=== PATIENT | male | born 1975 | race Caucasian/White ===

== ENCOUNTER 2017-12-08 07:33 | Observation (INO) | payer OTHER ==
[2017-12-08] MEDS ORDERED: ONDANSETRON 4 MG TAB.RAPDIS PO ONE (08:19)
[2017-12-08] MEDS ORDERED: CLINDAMYCIN PHOSPHATE INJ 300 MG/2 ML SDV IV ONE (08:19)
[2017-12-08] MEDS ORDERED: HYDROMORPHONE HCL INJ/PF 2 MG/ML AMPULE IV ONE (08:19)
--- NOTE | 2017-12-08 08:22 | ER Document Report ---
ED Skin Rash/Insect Bite/Abscs - General Chief Complaint: Boil Stated Complaint: POSSIBLE BOIL Time Seen by Provider: 12/08/17 08:11 Mode of Arrival: Ambulatory Information source: Patient Notes: 42-year-old male with a history of MRSA is complaining of a perineal abscess on the left side for several days. It did break open and drained pus last night but it continues to be painful and filled back up with pus. No fever. History of hydrocele so his scrotum is always swollen. No food since last night, water and coffeee at 5 am. TRAVEL OUTSIDE OF THE [place] IN LAST 30 DAYS: No - Related Data Allergies/Adverse Reactions: No Known Allergies Allergy (Unverified 09/12/11 08:46) Past Medical History - General Information source: Patient - Social History Smoking Status: Never Smoker Chew tobacco use (# tins/day): No Frequency of alcohol use: Occasional Drug Abuse: None Lives with: Spouse/Significant other Family History: Reviewed & Not Pertinent Patient has suicidal ideation: No Patient has homicidal ideation: No - Past Medical History Cardiac Medical History: Reports: Hx Hypercholesterolemia Renal/ Medical History: Reports: Hx Kidney Stones. Denies: Hx Peritoneal Dialysis Skin Medical History: Reports Hx MRSA Psychiatric Medical History: Reports: Hx Depression Past Surgical History: Reports: Hx Orthopedic Surgery - r knee, Hx Rectal Surgery - fistual - Immunizations Hx Diphtheria, Pertussis, Tetanus Vaccination: Yes Review of Systems - Review of Systems Constitutional: No symptoms reported EENT: No symptoms reported Cardiovascular: No symptoms reported Respiratory: No symptoms reported Gastrointestinal: No symptoms reported Genitourinary: No symptoms reported Male Genitourinary: No symptoms reported Musculoskeletal: No symptoms reported Skin: See HPI Hematologic/Lymphatic: No symptoms reported Neurological/Psychological: No symptoms reported Physical Exam - Vital signs Vitals: Temp Pulse Resp BP Pulse Ox 98.4 F 86 16 147/79 H 96 12/08/17 07:37 12/08/17 07:37 12/08/17 07:37 12/08/17 07:37 12/08/17 07:37 Interpretation: Normal - General General appearance: Appears well, Alert In distress: None - HEENT Head: Normocephalic, Atraumatic Eyes: Normal Pupils: PERRL Neck: Supple - Respiratory Respiratory status: No respiratory distress Chest status: Nontender Breath sounds: Normal Chest palpation: Normal - Cardiovascular Rhythm: Regular Heart sounds: Normal auscultation Murmur: No - Abdominal Inspection: Normal Distension: No distension Bowel sounds: Normal Tenderness: Nontender Organomegaly: No organomegaly - Rectal Tenderness: Yes Notes: 12 cm red, induration from inferior scrotum to left perineum, draining abscess perineum. - Back Back: Normal, Nontender - Extremities General upper extremity: Normal inspection, Nontender, Normal color, Normal ROM , Normal temperature General lower extremity: Normal inspection, Nontender, Normal color, Normal ROM , Normal temperature, Normal weight bearing. No: Roberto's sign - Neurological Neuro grossly intact: Yes Cognition: Normal Orientation: AAOx4 Angella Coma Scale Eye Opening: Spontaneous Angella Coma Scale Verbal: Oriented Angella Coma Scale Motor: Obeys Commands Angella Coma Scale Total: 15 Speech: Normal Motor strength normal: LUE, RUE, LLE, RLE Sensory: Normal - Psychological Associated symptoms: Normal affect, Normal mood - Skin Skin Temperature: Warm Skin Moisture: Dry Skin Color: Normal Skin irregularity: Abscess - see above Course - Re-evaluation Re-evalutation: 12/08/17 08:[address] lovell to check the abscess out to see if needs surgical intervention , we also have urologist maori liaison adviser dr. Chavez [phone]. 12/08/17 10:[address] lovell about seeing the pt in 32, he had forgotten, is coming to see the pt. 12/08/17 10:27 Dr. Lovell has seen the patient and wants to incise this in the OR and the patient is willing to have this done. - Vital Signs Vital signs: Temp Pulse Resp BP Pulse Ox 98.6 F 63 16 113/56 L 96 12/08/17 18:53 12/08/17 18:53 12/08/17 18:53 12/08/17 18:53 12/08/17 18:53 - Laboratory Result Diagrams: 12/08/17 08:30 12/08/17 08:30 Laboratory results interpreted by me: 12/08/17 08:30 WBC 11.5 H Hgb 13.4 L Seg Neutrophils % 78.3 H Lymphocytes % 10.7 L Absolute Neutrophils 9.0 H Discharge - Discharge Clinical Impression: Perineal abscess Condition: Stable Disposition: ADMITTED OBSERVATION Admitting Provider: Surgicalist Unit Admitted: OR
[2017-12-08 08:39] LABS: ABSOLUTE BASOPHILS # (AUTO) 0.1 10^3/uL (0.0-0.2); ABSOLUTE EOSINOPHILS # (AUTO) 0.3 10^3/uL (0.0-0.6); ABSOLUTE LYMPHOCYTES (AUTO) 1.2 10^3/uL (0.5-4.7); ABSOLUTE MONOCYTES (AUTO) 0.9 10^3/uL (0.1-1.4); EOSINOPHILS % (AUTO) 2.3 % (0-6); HEMOGLOBIN 13.4 g/dL (13.5-17.0); LYMPHOCYTES % (AUTO) 10.7 % (13-45); MEAN CORPUSCULAR HEMOGLOBIN 28.3 pg (27.0-33.4); MEAN CORPUSCULAR HGB CONC 33.6 g/dL (32.0-36.0); MEAN CORPUSCULAR VOLUME 84 fl (80-97); MONOCYTES % (AUTO) 7.7 % (3-13); PLATELET COUNT 277 10^3/uL (150-450); RED BLOOD COUNT 4.74 10^6/uL (4.35-5.55); RED CELL DISTRIBUTION WIDTH 12.5 % (11.5-14.0); SEGMENTED NEUTROPHILS % (AUTO) 78.3 % (42-78); TOTAL CELLS COUNTED % (AUTO) 100 %; WHITE BLOOD COUNT 11.5 10^3/uL (4.0-10.5)
[2017-12-08 08:57] LABS: ALANINE AMINOTRANSFERASE 41 U/L (21-72); ALKALINE PHOSPHATASE 60 U/L (38-126); ANION GAP 9 (5-19); ASPARTATE AMINO TRANSFERASE 25 U/L (17-59); BILIRUBIN,DIRECT 0.4 mg/dL (0.0-0.4); BILIRUBIN,TOTAL 0.6 mg/dL (0.2-1.3); BLOOD UREA NITROGEN 10 mg/dL (7-20); CALCIUM 9.2 mg/dL (8.4-10.2); CARBON DIOXIDE 27 mmol/L (22-30); CHLORIDE 106 mmol/L (98-107); GLUCOSE 94 mg/dL (75-110); POTASSIUM 4.6 mmol/L (3.6-5.0); SODIUM 141.5 mmol/L (137-145); TOTAL PROTEIN 6.8 g/dL (6.3-8.2)
[2017-12-08] MEDS ORDERED: CLINDAMYCIN 600 MG/D5W RTU 600 MG/50 ML RTUPB IV ONE (09:00)
[2017-12-08] MEDS ORDERED: NORMAL SALINE 1000 ML 1,000 ML IV ONE (10:15)
[2017-12-08] MEDS ORDERED: LIDOCAINE 2% INJ-PF (20 MG/ML) 2 ML AMPUL ONE (10:29)
[2017-12-08] MEDS ORDERED: ONDANSETRON HCL INJ/PF 4 MG/2 ML SDV ONE (10:29)
[2017-12-08] MEDS ORDERED: METOCLOPRAMIDE HCL INJ/PF 10 MG/2 ML SDV ONE (10:29)
[2017-12-08] MEDS ORDERED: DEXAMETHASONE SOD PHOSPHATE INJ 4 MG/1 ML VIAL ONE (10:29)
[2017-12-08] MEDS ORDERED: SUCCINYLCHOLINE CHLORIDE INJ 200 MG/10 ML VIAL ONE (10:29)
[2017-12-08] MEDS ORDERED: MIDAZOLAM 2 MG/2 ML INJ ONE (11:42)
[2017-12-08] MEDS ORDERED: FENTANYL CITRATE INJ/PF 100 MCG/2 ML AMPUL ONE ×2 (11:42→12:46)
[2017-12-08] MEDS ORDERED: PROPOFOL INJ 200 MG/20 ML VIAL IV ONE (11:43)
[2017-12-08] MEDS ORDERED: HYDROMORPHONE HCL INJ/PF 2 MG/ML AMPULE ONE (11:44)
[2017-12-08] MEDS ORDERED: DEXMEDETOMIDINE INJ 80 MCG/20 ML VIAL IV ONE (11:44)
[2017-12-08] MEDS ORDERED: FENTANYL CITRATE INJ/PF 100 MCG/2 ML AMPUL IV PRN ×3 (12:05)
[2017-12-08] MEDS ORDERED: DIPHENHYDRAMINE HCL 50 MG/ML VIAL IV PRN (12:05)
[2017-12-08] MEDS ORDERED: MEPERIDINE HCL/PF INJ 25 MG/1 ML DISP.SYRIN IV PRN (12:05)
[2017-12-08] MEDS ORDERED: ONDANSETRON HCL INJ/PF 4 MG/2 ML SDV IV PRN (12:05)
[2017-12-08] MEDS ORDERED: PROMETHAZINE HCL INJ 25 MG/1 ML VIAL IV PRN ×2 (12:05)
--- NOTE | 2017-12-08 12:48 | OPERATIVE REPORT E ---
Operative Report NAME: VIJI HAMILTON : 1975 AGE: 42Y DATE OF SURGERY: 12/08/2017 ROOM: OR PREOPERATIVE DIAGNOSIS: LEFT PERINEAL ABSCESS. POSTOPERATIVE DIAGNOSIS: LEFT PERINEAL ABSCESS. OPERATION: Incision and drainage of left perineal abscess. SURGEON: RUSLAN GAN M.D. ANESTHESIA: General. INDICATION FOR SURGERY: This is a 42-year-old male who had pains in the left groin for the past few days and worse today. He has some reddish discoloration with swelling around the left groin, just below the scrotal area. The scrotum itself appears to be slightly red. He is known to have a right hydrocele. DESCRIPTION OF PROCEDURE: After adequate general anesthesia, the patient was placed in lithotomy position. The perineal prepped and draped in the usual sterile fashion. Appropriate time out was called. Incision and drainage made over the necrotic area, the middle of the abscess site about 1 cm long. This was incised and a lot of purulent material extruded out and cultures were obtained. The pocket was then further extended proximally and distally to a total distance of about 8 cm. All the pus was then evacuated and it was then pulse-lavaged with about 3 L of saline. After lavage, hemostasis was obtained with cautery. The cavity was then packed with Iodoform gauze, a bottle of quarter-inch was used. The cavity site measured about 8 cm x 3 cm wide x 2 cm deep. Sterile dressings using 4x4 and bd pad were placed over the operative sites. Needle, instrument counts were all correct. Estimated blood loss about 20 mL. Patient then brought to the recovery room in satisfactory condition. DICTATING PHYSICIAN: RUSLAN GAN M.D. [id number] PHY#: [id number] ID: [id number] JOB#: [id number] ACCT: [id number] cc:RUSLAN GAN M.D. > MTDD
[2017-12-08] MEDS ORDERED: OXYCODONE-ACETAMINOPHEN 5-325 MG TABLET PO PRN (14:59)
[2017-12-08] MEDS ORDERED: PIPERACILLIN SODIUM/TAZOBACTAM 3.375 GM in NORMAL SALINE 100 ML IV SCH (18:00)
[2017-12-08 18:58] VITALS: BP 113/56
--- NOTE | 2017-12-29 20:09 | HISTORY AND PHYSICAL E ---
History and Physical NAME: VIJI HAMILTON : 1975 AGE: 42Y ADMITTED: 12/08/2017 ROOM: 206 CHIEF COMPLAINT: Left perineal pains. HISTORY OF PRESENT ILLNESS: This is a 42-year-old male complaining of left perineal pains for the past several days. The night prior to being seen in the emergency room the abscess site in the left perineal area drained pus. However, because of the pains and since the abscess cavity appears to be filled up again the patient presented to the emergency room. PAST MEDICAL HISTORY: History of MRSA infection in the past. FAMILY HISTORY: Unremarkable. ALLERGIES: No known. SOCIAL HISTORY: Never smoked. Occasional use of alcohol. Denies alcohol/drug abuse. REVIEW OF SYSTEMS: CONSTITUTIONAL: Denies any fever or chills. ENT: No symptoms reported. CARDIOVASCULAR: No chest pain, chest pressure/tightness, no shortness of breath. GASTROINTESTINAL: No diarrhea or constipation. GENITOURINARY: No dysuria. MUSCULOSKELETAL: No muscle pains. SKIN: Abscess site along the left perineal area. HEMATOLOGIC/LYMPHATIC: No symptoms reported. NEUROLOGICAL/PSYCHOLOGICAL: No symptoms reported. PHYSICAL EXAMINATION: GENERAL APPEARANCE: Well-developed, well-nourished, 42-year-old male alert and oriented. Complaining of left perineal pains. The patient appears to be alert and oriented, in no real acute distress. VITAL SIGNS: Temperature is 98.4, pulse of 86 with respiratory rate of 16 per minute, blood pressure 147/79, pulse ox of 96% on room air. HEENT: Head is normocephalic. Eyes normal. Pupils; PERRL. NECK: Supple. CHEST: Breath sounds normal. HEART: Regular sinus rhythm. ABDOMEN: Soft, nontender. RECTAL: Has tenderness along the left perineal area just below the left scrotum. There is draining some purulent material. The area roughly measured about 12 cm erythematous. EXTREMITIES: No edema. NEUROLOGIC: No gross neuro abnormality. The patient is alert and oriented x4. Normal affect. SKIN: Warm and dry. Abscess noted on the left perineal area. IMPRESSION: Abscess of the left perineal area. PLAN: For incision and drainage under general anesthesia. The patient is started on IV antibiotics. DICTATING PHYSICIAN: RUSLAN GAN M.D. [id number] PHY#: [id number] ID: [id number] JOB#: [id number] ACCT: [id number] cc:RUSLAN GAN M.D. >
--- NOTE | 2017-12-29 20:19 | DISCHARGE SUMMARY E ---
Discharge Summary NAME: VIJI HAMILTON : 1975 AGE: 42Y ADMITTED: 12/08/2017 DISCHARGED: 12/08/2017 FINAL DIAGNOSIS: Left perineal abscess. PROCEDURE: Done 12/08/17; incision and drainage of left perineal abscess, surgeon Dr. Lovell, anesthesia general. HOSPITAL COURSE: This is a 42-year-old male with complaints of pains in the left perineal area for the past several days. The abscess site drained pus the night prior to admission, because it is still painful and filled up again with pus he went to the emergency room. He then underwent incision and drainage of the left perineal abscess on 12/08/17, and the wound was then packed with Iodoform gauze. The patient then discharged the same day on p.o. clindamycin. He was advised to follow up with the surgical center in about 2 or 3 days for removal of the packing. DICTATING PHYSICIAN: RUSLAN LOVELL M.D. [id number] PHY#: [id number] ID: [id number] JOB#: [id number] ACCT: [id number] cc:RUSLAN LOVELL M.D. >
== END 2017-12-08 19:25 | disposition home or self-care (01) ==
LOC: ER 07:33 → INOR 10:43 → 2N 13:50
PROVIDERS: ADMIT Surgery; ATTEND Surgery
PROC: 0JDB0ZZ Extraction of Perineum Subcutaneous Tissue and Fascia, Open Approach (ICD-10-PCS; 2017-12-08)
PROC: 0J9B0ZZ Drainage of Perineum Subcutaneous Tissue and Fascia, Open Approach (ICD-10-PCS; principal; 2017-12-08 13:00)
DX: L02.215 Cutaneous abscess of perineum (principal); N43.2 Other hydrocele; Z86.14 Personal history of Methicillin resistant Staphylococcus aureus infection
CPT/HCPCS: 99285; 96361; 96375; 96365; 36415; 87070; 87205; 85025; 87075; 87077; 80053; 87186; 10060; 11000; G0378; A6266; J2250; J1100; S0119; J3010; J2765; J1170; J0330; J2405; J7030; J2704; J2543; J3490 ×2; 400